=== PATIENT | male | born 1975 | race Two or more races ===

== ENCOUNTER 2024-07-19 19:06 | Emergency (ER) | payer MEDICAID, OTHER ==
[~2024-07-19] VITALS: Ht 182.9 cm; Wt 72.6 kg
[2024-07-19 19:55] VITALS: PULSE 84; RESP 17; TEMP 97.4; O2SAT 96
[2024-07-19 20:07] LABS: Basophils # (auto) 0 10 ^3/uL (0-0.2); Basophils % (auto) 0.4 % (0.0-2.0); Eosinophils # (auto) 0.1 10 ^3/uL (0-0.8); Eosinophils % (auto) 1.5 % (0.0-7.0); Hematocrit 41.9 % (41.0-53.0); Hemoglobin 14.2 g/dL (13.5-17.5); Lymphocytes # (auto) 1.2 10 ^3/uL (0.4-5.4); Lymphocytes % (auto) 15.6 % (10.0-50.0); Mean Corpuscular Hemoglobin 33.1 pg (28.0-32.0); Mean Corpuscular Hgb Conc. 33.8 g/dL (32.0-36.0); Mean Corpuscular Volume 97.7 fL (80.0-100.0); Monocytes # (auto) 0.5 10 ^3/uL (0-1.3); Monocytes % (auto) 6.3 % (0.0-12.0); Neutrophils # (auto) 5.9 10 ^3/uL (1.6-8.6); Neutrophils % (auto) 76.2 % (37.0-80.0); Platelet Count (auto) 292 10^3/uL (140-450); Red Blood Cells 4.29 10^6/uL (4.5-5.90); Red Cell Distribution Width 12.5 % (11.8-14.3); White Blood Cell 7.7 10^3/uL (4.4-10.8)
[2024-07-19 20:16] LABS: Chloride 106 mmol/L (98-107); Potassium 4.1 mmol/L (3.5-5.1); Sodium 137 mmol/L (136-145)
[2024-07-19 20:17] LABS: Anion Gap 5 (5-15); Carbon Dioxide 26 mmol/L (20-31)
[2024-07-19 20:18] LABS: Calcium 9.7 mg/dL (8.7-10.4)
[2024-07-19 20:22] LABS: Glucose 92 mg/dL (74-106)
[2024-07-19 20:23] LABS: BUN/Creatinine Ratio 10.7 (10.0-20.0); Blood Alcohol < 3.0 mg/dL (<10); Blood Urea Nitrogen 13 mg/dL (9-23)
[2024-07-19 20:24] LABS: Acetaminophen < 2.0 UG/ML (10.0-20.0)
[2024-07-19 20:25] LABS: Salicylate < 3.0 mg/dL (-30)
[2024-07-19 22:54] LABS: Urine Bacteria None Seen /hpf (None Seen)
[2024-07-19 23:00] LABS: Urine Blood Negative /uL (Negative); Urine Clarity Clear (Clear); Urine Color Light-Yellow (Yellow); Urine Protein, UAD Negative (Negative); Urine Specific Gravity 1.012 (1.001-1.035); Urine Urobilinogen Normal (Negative); Urine WBC <1 /hpf (0 - 3); Urine pH 6.5 (5.0-9.0)
[2024-07-19 23:12] LABS: Amphetamine Screen, Urine Pos (NEGATIVE); Barbiturate Scree,Urine Neg (NEGATIVE); Benzodiazephine Screen, Urine Neg (NEGATIVE); Cannabinoid Screen, Urine Pos (NEGATIVE); Cocaine Screen, Urine Neg (NEGATIVE); Opiate Scree,Urine Neg (NEGATIVE); Phencyclidine Screen, Urine Neg (NEGATIVE)
[2024-07-20 07:30] VITALS: PULSE 83; RESP 14; O2SAT 95
[2024-07-20 10:00] VITALS: BP 140/92; PULSE 88; RESP 14; O2SAT 98
== END 2024-07-20 10:37 | disposition left against medical advice (07) ==
LOC: EDBD 19:06 → ER 19:06
DX: T42.4X2A Poisoning by benzodiazepines, intentional self-harm, initial encounter (principal); J45.909 Unspecified asthma, uncomplicated; F31.9 Bipolar disorder, unspecified; F20.9 Schizophrenia, unspecified; F17.210 Nicotine dependence, cigarettes, uncomplicated; Y92.89 Other specified places as the place of occurrence of the external cause
CPT/HCPCS: 36415; 80048; 80307; 80320; 80329; 81001; 85025; 93005; 99291